=== PATIENT | male | born 1950 | race Two or more races ===

== ENCOUNTER 2023-08-08 21:26 | Emergency (ER) | payer MEDICARE, OTHER ==
[2023-08-08 23:42] LABS: #Eosinphils 0.1 thou/uL (0.0-0.7); #Monocytes 0.5 thou/uL (0.11-0.59); #Neutrophils 3.6 thou/uL (1.40-6.50); %Basophils 0.5 % (0.0-1.0); %Eosinophils 2.5 % (0.0-10.0); %Lymphocytes 23.1 % (21.0-51.0); %Monocytes 9.4 % (0.0-10.0); %Neutrophils 64.1 % (42.0-75.0); Hematocrit 29.4 % (42.0-52.0); Hemoglobin 9.9 g/dL (14.0-18.0); Mean Corpuscular HGB CONC 33.7 g/dL (32.0-36.0); Mean Corpuscular Volume 89.1 fl (78.0-98.0); Mean Platelet Volume 8.7 fL (7.4-10.4); Platelet Count 407 10x3/uL (130-400); RBC Distribution Width 12.7 % (11.5-14.5); White Blood Cell (WBC) Count 5.6 10x3/uL (4.8-10.8)
[2023-08-08 23:56] LABS: INR-International Normal Ratio 4.8; Prothrombin Time 47.1 sec (12.0-14.7)
[2023-08-08 23:58] LABS: PTT 85.3 sec (22.9-36.1)
[2023-08-09 00:31] LABS: Albumin 3.6 g/dL (3.4-4.8); Calcium 8.4 mg/dL (7.8-10.44); Chloride 105 mmol/L (98-107); Globulin 3.2 g/dL (2.4-3.5); Glucose 226 mg/dL (83-110); Potassium 5.2 mmol/L (3.5-5.1); Protein, Total 6.8 g/dL (5.8-8.1); Sodium 136 mmol/L (136-145)
[2023-08-09 00:32] LABS: Anion Gap 15 mmol/L (10-20); Bilirubin, Total 0.2 mg/dL (0.2-1.2); Carbon Dioxide 21 mmol/L (23-31)
[2023-08-09 00:33] LABS: Alkaline Phosphatase 65 U/L (40-110)
[2023-08-09 00:34] LABS: Calc. Creatinine Clearance 0 mL/min (70-130); Estimated GFR 28
[2023-08-09 00:35] LABS: BUN (Urea Nitrogen) 40 mg/dL (8.4-25.7)
[2023-08-09 00:36] LABS: ALT (SGPT) 17 U/L (8-55); AST (SGOT) 14 U/L (5-34)
[2023-08-09 04:37] LABS: Anion Gap 12 mmol/L (10-20); BUN (Urea Nitrogen) 38 mg/dL (8.4-25.7); Calc. Creatinine Clearance 0 mL/min (70-130); Carbon Dioxide 21 mmol/L (23-31); Chloride 109 mmol/L (98-107); Estimated GFR 33; Glucose 223 mg/dL (83-110); Potassium 4.5 mmol/L (3.5-5.1); Sodium 137 mmol/L (136-145)
== END 2023-08-09 05:09 | disposition home or self-care (01) ==
LOC: ERS 21:26
DX: R60.0 Localized edema (principal); E11.22 Type 2 diabetes mellitus with diabetic chronic kidney disease; N18.9 Chronic kidney disease, unspecified
CPT/HCPCS: 36415; 80048; 80053; 83605; 85025; 85610; 85730

== ENCOUNTER 2023-08-24 09:52 | Outpatient (CLI) | payer MEDICARE, OTHER | END 2023-08-24 09:53 | disposition home or self-care (01) | LOC: BICCT 09:52 | PROVIDERS: ATTEND Nurse Practitioner Family | DX: R09.89 Other specified symptoms and signs involving the circulatory and respiratory systems (principal) | CPT/HCPCS: 82565 ==

== ENCOUNTER 2023-08-31 15:06 | Outpatient (CLI) | payer MEDICARE, OTHER | END 2023-08-31 15:07 | disposition home or self-care (01) | LOC: BICULT 15:06 | PROVIDERS: ATTEND Internal Medicine Nephrology | DX: I12.9 Hypertensive chronic kidney disease with stage 1 through stage 4 chronic kidney disease, or unspecified chronic kidney disease (principal); N18.9 Chronic kidney disease, unspecified; R93.421 Abnormal radiologic findings on diagnostic imaging of right kidney; R93.422 Abnormal radiologic findings on diagnostic imaging of left kidney | CPT/HCPCS: 76770; 93975 ==

== ENCOUNTER 2024-03-23 16:32 | Inpatient (IN) | payer MEDICARE, OTHER ==
[2024-03-23 19:38] LABS: #Basophils 0.06 10x3/uL (0.0-0.2); %Basophils 0.4 % (0.0-1.0); %Eosinophils 0.4 % (0.0-10.0); %Lymphocytes 6.9 % (21.0-51.0); %Monocytes 6.1 % (0.0-10.0); %Neutrophils 85.7 % (42.0-75.0); Hematocrit 29.2 % (42.0-52.0); Hemoglobin 9.3 g/dL (14.0-18.0); Mean Corpuscular HGB CONC 31.8 g/dL (32.0-36.0); Mean Corpuscular Hemoglobin 27.7 pg (27.0-31.0); Mean Corpuscular Volume 86.9 fL (78.0-98.0); Mean Platelet Volume 8.6 fL (7.4-10.4); Platelet Count 583 10x3/uL (130-400); RBC Distribution Width 14.6 % (11.5-14.5); Red Blood Cell (RBC) Count 3.36 mill/uL (4.70-6.10)
[2024-03-23 19:56] LABS: ALT (SGPT) 53 U/L (8-55); AST (SGOT) 30 U/L (5-34); Albumin 2.7 g/dL (3.4-4.8); Alkaline Phosphatase 114 U/L (40-110); Anion Gap 15 mmol/L (10-20); BUN (Urea Nitrogen) 45 mg/dL (8.4-25.7); Bilirubin, Total 0.8 mg/dL (0.2-1.2); Calc. Creatinine Clearance 0 mL/min (70-130); Carbon Dioxide 23 mmol/L (23-31); Chloride 96 mmol/L (98-107); Estimated GFR 25; Globulin 5.4 g/dL (2.4-3.5); Glucose 321 mg/dL (83-110); Potassium 5.5 mmol/L (3.5-5.1); Protein, Total 8.1 g/dL (5.8-8.1); Sodium 128 mmol/L (136-145)
[2024-03-23] MEDS ORDERED: Sodium Chloride 0.9% 100 ML ONE (20:53)
[2024-03-23] MEDS ORDERED: Cefepime 2 GM VIAL ONE (20:53)
[2024-03-23] MEDS ORDERED: Furosemide 20 MG (2 mL) VIAL ONE (22:09)
[2024-03-23] MEDS ORDERED: Glucagon 1 MG/ML KIT IM PRN (22:37)
[2024-03-23] MEDS ORDERED: Dextrose 5% in Water 1,000 ML IV PRN (22:37)
[2024-03-23] MEDS ORDERED: Dextrose 50% Abboject 50 ML SYRINGE SLOW IVP PRN (22:37)
[2024-03-23] MEDS ORDERED: Ondansetron ODT 4 MG TAB PO PRN (22:38)
[2024-03-23] MEDS: Vancomycin (BATCH) 1.75 GM in Premix 1 BAG IVPB SCH (23:56)
[2024-03-24 00:02] LABS: INR-International Normal Ratio 2.7; Prothrombin Time 28.9 sec (12.0-14.7)
[2024-03-24 00:04] LABS: PTT 73.9 sec (22.9-36.1)
[2024-03-24 01:17] VITALS: BMI 29.3
[2024-03-24] MEDS: Ondansetron PF 4 MG/2 ML Vial IVP PRN (01:51)
[2024-03-24] MEDS: Acetaminophen 650 MG Suppository PR PRN (02:04)
[2024-03-24 05:26] LABS: #Basophils 0.04 10x3/uL (0.0-0.2); %Basophils 0.3 % (0.0-1.0); %Eosinophils 0.6 % (0.0-10.0); %Lymphocytes 6.9 % (21.0-51.0); %Neutrophils 83.6 % (42.0-75.0); Hematocrit 24.2 % (42.0-52.0); Hemoglobin 7.8 g/dL (14.0-18.0); Mean Corpuscular HGB CONC 32.2 g/dL (32.0-36.0); Mean Corpuscular Hemoglobin 27.7 pg (27.0-31.0); Mean Corpuscular Volume 85.8 fL (78.0-98.0); Mean Platelet Volume 8.7 fL (7.4-10.4); Platelet Count 484 10x3/uL (130-400); RBC Distribution Width 14.4 % (11.5-14.5); Red Blood Cell (RBC) Count 2.82 mill/uL (4.70-6.10)
[2024-03-24 06:08] LABS: Anion Gap 16 mmol/L (10-20); BUN (Urea Nitrogen) 43 mg/dL (8.4-25.7); Calc. Creatinine Clearance 32 mL/min (70-130); Calcium 8.7 mg/dL (7.8-10.44); Carbon Dioxide 21 mmol/L (23-31); Chloride 102 mmol/L (98-107); Estimated GFR 29; Glucose 168 mg/dL (83-110); Potassium 4.5 mmol/L (3.5-5.1); Sodium 134 mmol/L (136-145)
[2024-03-24] MEDS: Famotidine/PF 20 mg/2ml Vial SLOW IVP SCH (08:33)
[2024-03-24] MEDS: Gabapentin 300 MG CAP PO SCH (08:33)
[2024-03-24] MEDS: Baclofen 10 MG TAB PO SCH (08:33)
[2024-03-24] MEDS: Famotidine 20 MG TAB PO SCH (08:33)
[2024-03-24] MEDS: Citalopram 20 MG TAB PO SCH (08:33)
[2024-03-24] MEDS: HumuLIN 70/30 100 Unit/ml 10 ml Vial SC SCH (08:34)
[2024-03-24] MEDS ORDERED: Phytonadione 10 MG/ML AMP PO SCH (12:45)
[2024-03-24 13:19] LABS: Prothrombin Time 31.3 sec (12.0-14.7)
[2024-03-24 13:20] LABS: PTT 77.1 sec (22.9-36.1)
[2024-03-24] MEDS: Phytonadione 5 MG TAB PO SCH (16:32)
[2024-03-24] MEDS: Insulin Lispro 100 UNIT/ML 10 ML VIAL SC PRN ×2 (17:50→20:34)
[2024-03-24] MEDS: Cefepime 1 GM in Sodium Chloride 0.9% 100 ML IVPB SCH (20:27)
[2024-03-24] MEDS: metroNIDAZOLE 250 MG TAB PO SCH (20:30)
[2024-03-24] MEDS: Rosuvastatin 20 MG TAB PO SCH (20:30)
[2024-03-25 04:29] LABS: #Basophils 0.03 10x3/uL (0.0-0.2); %Basophils 0.3 % (0.0-1.0); %Eosinophils 2.6 % (0.0-10.0); %Lymphocytes 10.3 % (21.0-51.0); %Monocytes 8.5 % (0.0-10.0); %Neutrophils 77.7 % (42.0-75.0); Hematocrit 25.1 % (42.0-52.0); Hemoglobin 7.9 g/dL (14.0-18.0); Mean Corpuscular HGB CONC 31.5 g/dL (32.0-36.0); Mean Corpuscular Hemoglobin 27.2 pg (27.0-31.0); Mean Corpuscular Volume 86.6 fL (78.0-98.0); Mean Platelet Volume 8.8 fL (7.4-10.4); Platelet Count 496 10x3/uL (130-400); RBC Distribution Width 14.5 % (11.5-14.5)
[2024-03-25 05:10] LABS: Anion Gap 15 mmol/L (10-20); BUN (Urea Nitrogen) 41 mg/dL (8.4-25.7); Calc. Creatinine Clearance 36 mL/min (70-130); Calcium 8.7 mg/dL (7.8-10.44); Carbon Dioxide 23 mmol/L (23-31); Chloride 105 mmol/L (98-107); Estimated GFR 34; Glucose 119 mg/dL (83-110); Potassium 4.7 mmol/L (3.5-5.1); Sodium 138 mmol/L (136-145)
[2024-03-25 05:16] LABS: Hemoglobin A1c 7.3 % (4.0-6.0)
[2024-03-25] MEDS: LevoFLOXacin 250 MG TAB PO SCH (06:04)
[2024-03-25] MEDS ORDERED: Baclofen 10 MG TAB PO PRN (09:12)
[2024-03-25 11:17] LABS: INR-International Normal Ratio 1.6; Prothrombin Time 18.7 sec (12.0-14.7)
[2024-03-25 11:18] LABS: PTT 54.5 sec (22.9-36.1)
[2024-03-25] MEDS: Phytonadione 10 MG in Sodium Chloride 0.9% 50 ML IVPB SCH (11:23)
[2024-03-25] MEDS: Insulin Glargine 30 UNITS/0.3 ML VIAL SC SCH (21:45)
[2024-03-26 04:58] LABS: #Basophils 0.03 10x3/uL (0.0-0.2); %Basophils 0.4 % (0.0-1.0); %Eosinophils 2.9 % (0.0-10.0); %Lymphocytes 11.4 % (21.0-51.0); %Monocytes 8.9 % (0.0-10.0); Hemoglobin 8.5 g/dL (14.0-18.0); Mean Corpuscular HGB CONC 31.5 g/dL (32.0-36.0); Mean Corpuscular Hemoglobin 26.4 pg (27.0-31.0); Mean Corpuscular Volume 83.9 fL (78.0-98.0); Mean Platelet Volume 8.9 fL (7.4-10.4); Platelet Count 536 10x3/uL (130-400); RBC Distribution Width 14.2 % (11.5-14.5); Red Blood Cell (RBC) Count 3.22 mill/uL (4.70-6.10)
[2024-03-26 05:26] LABS: Anion Gap 19 mmol/L (10-20); BUN (Urea Nitrogen) 35 mg/dL (8.4-25.7); Calc. Creatinine Clearance 48 mL/min (70-130); Calcium 8.7 mg/dL (7.8-10.44); Carbon Dioxide 21 mmol/L (23-31); Chloride 103 mmol/L (98-107); Estimated GFR 48; Glucose 142 mg/dL (83-110); Potassium 4.5 mmol/L (3.5-5.1); Sodium 138 mmol/L (136-145)
[2024-03-26 06:17] LABS: INR-International Normal Ratio 1.3; Prothrombin Time 16.4 sec (12.0-14.7)
[2024-03-26] MEDS ORDERED: Ketamine In 0.9 % NaCl 50 MG/5 ML SYRINGE ONE (09:58)
[2024-03-26] MEDS ORDERED: Midazolam HCl 2 mg/2 ml Vial ONE (09:58)
[2024-03-26] MEDS ORDERED: PROPOFOL 20 ML ONE (09:58)
[2024-03-26] MEDS ORDERED: Lidocaine 1% PF 5 ML VIAL ONE (10:26)
[2024-03-26] MEDS: Cefepime 1 GM in Sodium Chloride 0.9% 100 ML IVPB SCH (13:06)
[2024-03-26] MEDS: Warfarin Sodium 7.5 MG TAB PO SCH (17:42)
[2024-03-26] MEDS: Acetaminophen 325 MG TAB PO PRN (21:04)
[2024-03-27 04:39] LABS: #Basophils 0.03 10x3/uL (0.0-0.2); %Basophils 0.4 % (0.0-1.0); %Eosinophils 1.7 % (0.0-10.0); %Lymphocytes 15.1 % (21.0-51.0); %Monocytes 10.2 % (0.0-10.0); Hematocrit 25.4 % (42.0-52.0); Hemoglobin 7.9 g/dL (14.0-18.0); Mean Corpuscular HGB CONC 31.1 g/dL (32.0-36.0); Mean Corpuscular Hemoglobin 26.8 pg (27.0-31.0); Mean Corpuscular Volume 86.1 fL (78.0-98.0); Mean Platelet Volume 8.6 fL (7.4-10.4); Platelet Count 478 10x3/uL (130-400); Red Blood Cell (RBC) Count 2.95 mill/uL (4.70-6.10)
[2024-03-27 04:52] LABS: INR-International Normal Ratio 1.3; Prothrombin Time 16.6 sec (12.0-14.7)
[2024-03-27 05:06] LABS: Anion Gap 13 mmol/L (10-20); BUN (Urea Nitrogen) 31 mg/dL (8.4-25.7); Calc. Creatinine Clearance 47 mL/min (70-130); Calcium 8.5 mg/dL (7.8-10.44); Carbon Dioxide 24 mmol/L (23-31); Chloride 103 mmol/L (98-107); Estimated GFR 47; Glucose 138 mg/dL (83-110); Potassium 4.6 mmol/L (3.5-5.1); Sodium 135 mmol/L (136-145)
[2024-03-27 08:22] VITALS: BMI 28.8
[2024-03-27] MEDS: Acetaminophen/Codeine 30-300mg Tablet PO PRN (09:32)
[2024-03-28 04:22] LABS: #Basophils 0.04 10x3/uL (0.0-0.2); %Basophils 0.6 % (0.0-1.0); %Eosinophils 2.5 % (0.0-10.0); %Lymphocytes 14.8 % (21.0-51.0); %Monocytes 9.4 % (0.0-10.0); %Neutrophils 72.2 % (42.0-75.0); Hematocrit 25.3 % (42.0-52.0); Mean Corpuscular HGB CONC 31.6 g/dL (32.0-36.0); Mean Corpuscular Hemoglobin 26.4 pg (27.0-31.0); Mean Corpuscular Volume 83.5 fL (78.0-98.0); Mean Platelet Volume 8.5 fL (7.4-10.4); Platelet Count 459 10x3/uL (130-400); Red Blood Cell (RBC) Count 3.03 mill/uL (4.70-6.10)
[2024-03-28 04:40] LABS: INR-International Normal Ratio 1.6; Prothrombin Time 18.9 sec (12.0-14.7)
[2024-03-28 04:46] LABS: Anion Gap 11 mmol/L (10-20); BUN (Urea Nitrogen) 28 mg/dL (8.4-25.7); Calc. Creatinine Clearance 45 mL/min (70-130); Calcium 8.3 mg/dL (7.8-10.44); Carbon Dioxide 24 mmol/L (23-31); Chloride 102 mmol/L (98-107); Estimated GFR 45; Glucose 259 mg/dL (83-110); Potassium 4.4 mmol/L (3.5-5.1); Sodium 133 mmol/L (136-145)
[2024-03-28] MEDS: Gabapentin 300 MG CAP PO SCH (05:17)
[2024-03-28] MEDS: Warfarin Sodium 10 MG TAB PO SCH (15:53)
[2024-03-29 05:50] LABS: #Basophils Less than 0.03 10x3/uL (0.0-0.2); %Basophils 0.3 % (0.0-1.0); %Eosinophils 3.2 % (0.0-10.0); %Lymphocytes 17.9 % (21.0-51.0); %Monocytes 9.2 % (0.0-10.0); %Neutrophils 68.7 % (42.0-75.0); Mean Corpuscular Hemoglobin 27.3 pg (27.0-31.0); Mean Corpuscular Volume 85.3 fL (78.0-98.0); Mean Platelet Volume 8.9 fL (7.4-10.4); Platelet Count 471 10x3/uL (130-400); Red Blood Cell (RBC) Count 2.93 mill/uL (4.70-6.10)
[2024-03-29 06:12] LABS: Anion Gap 14 mmol/L (10-20); BUN (Urea Nitrogen) 23 mg/dL (8.4-25.7); Calc. Creatinine Clearance 52 mL/min (70-130); Calcium 8.4 mg/dL (7.8-10.44); Carbon Dioxide 24 mmol/L (23-31); Chloride 103 mmol/L (98-107); Estimated GFR 54; Glucose 102 mg/dL (83-110); Potassium 4.4 mmol/L (3.5-5.1); Sodium 137 mmol/L (136-145)
[2024-03-29 06:19] LABS: INR-International Normal Ratio 2.1; Prothrombin Time 23.5 sec (12.0-14.7)
[2024-03-29] MEDS: SODIUM CHLORIDE 0.9% IVPB SCH (15:13)
[2024-03-29] MEDS: VANCOMYCIN IVPB SCH (15:13)
[2024-03-29] MEDS: Vancomycin (BATCH) 1.75 GM in Premix 1 BAG IVPB SCH (15:39)
[2024-03-29] MEDS: Warfarin Sodium 7.5 MG TAB PO SCH (17:36)
[2024-03-30 04:39] LABS: #Basophils 0.04 10x3/uL (0.0-0.2); %Basophils 0.6 % (0.0-1.0); %Eosinophils 3.1 % (0.0-10.0); %Neutrophils 68.4 % (42.0-75.0); Hematocrit 26.8 % (42.0-52.0); Hemoglobin 8.5 g/dL (14.0-18.0); Mean Corpuscular HGB CONC 31.7 g/dL (32.0-36.0); Mean Corpuscular Hemoglobin 26.4 pg (27.0-31.0); Mean Corpuscular Volume 83.2 fL (78.0-98.0); Mean Platelet Volume 8.7 fL (7.4-10.4); Platelet Count 430 10x3/uL (130-400); Red Blood Cell (RBC) Count 3.22 mill/uL (4.70-6.10)
[2024-03-30 04:54] LABS: INR-International Normal Ratio 2.4; Prothrombin Time 26.5 sec (12.0-14.7)
[2024-03-30 05:00] LABS: Vancomycin, Random 20.9 ug/mL (See Comment)
[2024-03-30 05:41] LABS: Chloride 106 mmol/L (98-107); Potassium 4.7 mmol/L (3.5-5.1); Sodium 136 mmol/L (136-145)
[2024-03-30 05:42] LABS: Glucose 100 mg/dL (83-110)
[2024-03-30 05:44] LABS: Anion Gap 13 mmol/L (10-20); Carbon Dioxide 22 mmol/L (23-31)
[2024-03-30 05:46] LABS: Calc. Creatinine Clearance 53 mL/min (70-130); Estimated GFR 55
[2024-03-30 05:47] LABS: BUN (Urea Nitrogen) 22 mg/dL (8.4-25.7)
[2024-03-30] MEDS: Vancomycin (BATCH) 1.25 GM in Premix 1 BAG IVPB SCH (12:31)
[2024-03-30] MEDS ORDERED: Vancomycin (BATCH) 1.25 GM in Premix 1 BAG IVPB SCH (14:00)
[2024-03-31 05:07] LABS: INR-International Normal Ratio 2.6; Prothrombin Time 28.1 sec (12.0-14.7)
[2024-03-31 05:18] LABS: Vancomycin, Random 20.1 ug/mL (See Comment)
[2024-03-31] MEDS: Vancomycin HCl 750 MG in Sodium Chloride 0.9% 250 ML 250 ML IVPB SCH (12:49)
[2024-03-31] MEDS ORDERED: Polyethylene Glycol 3350 17 GM Packet PO PRN (13:34)
[2024-03-31] MEDS: Senokot S 8.6-50 MG TAB PO SCH (21:26)
[2024-04-01 05:18] LABS: #Basophils 0.04 10x3/uL (0.0-0.2); %Basophils 0.6 % (0.0-1.0); %Eosinophils 3.4 % (0.0-10.0); %Lymphocytes 22.8 % (21.0-51.0); %Neutrophils 62.6 % (42.0-75.0); Hematocrit 26.5 % (42.0-52.0); Hemoglobin 8.3 g/dL (14.0-18.0); Mean Corpuscular HGB CONC 31.3 g/dL (32.0-36.0); Mean Corpuscular Hemoglobin 25.9 pg (27.0-31.0); Mean Corpuscular Volume 82.6 fL (78.0-98.0); Mean Platelet Volume 8.9 fL (7.4-10.4); Platelet Count 415 10x3/uL (130-400); Red Blood Cell (RBC) Count 3.21 mill/uL (4.70-6.10)
[2024-04-01 05:32] LABS: Anion Gap 13 mmol/L (10-20); BUN (Urea Nitrogen) 18 mg/dL (8.4-25.7); Calc. Creatinine Clearance 66 mL/min (70-130); Calcium 8.3 mg/dL (7.8-10.44); Carbon Dioxide 23 mmol/L (23-31); Chloride 103 mmol/L (98-107); Estimated GFR 71; Glucose 98 mg/dL (83-110); Magnesium 1.7 mg/dL (1.6-2.6); Sodium 135 mmol/L (136-145)
[2024-04-01 05:59] LABS: Prothrombin Time 31.1 sec (12.0-14.7)
[2024-04-01] MEDS: Magnesium Oxide 400 MG TAB PO SCH (20:53)
[2024-04-01] MEDS: Senokot S 8.6-50 MG TAB PO SCH (20:53)
[2024-04-02 05:18] LABS: #Basophils 0.04 10x3/uL (0.0-0.2); %Basophils 0.7 % (0.0-1.0); %Lymphocytes 23.7 % (21.0-51.0); %Monocytes 9.8 % (0.0-10.0); %Neutrophils 61.9 % (42.0-75.0); Hematocrit 27.3 % (42.0-52.0); Hemoglobin 8.5 g/dL (14.0-18.0); Mean Corpuscular HGB CONC 31.1 g/dL (32.0-36.0); Mean Corpuscular Hemoglobin 26.5 pg (27.0-31.0); Mean Platelet Volume 8.6 fL (7.4-10.4); Platelet Count 405 10x3/uL (130-400); RBC Distribution Width 14.2 % (11.5-14.5); Red Blood Cell (RBC) Count 3.21 mill/uL (4.70-6.10)
[2024-04-02 05:44] LABS: Vancomycin, Random 14.6 ug/mL (See Comment)
[2024-04-02 05:47] LABS: Anion Gap 13 mmol/L (10-20); BUN (Urea Nitrogen) 17 mg/dL (8.4-25.7); Calc. Creatinine Clearance 62 mL/min (70-130); Calcium 8.4 mg/dL (7.8-10.44); Carbon Dioxide 23 mmol/L (23-31); Chloride 105 mmol/L (98-107); Estimated GFR 67; Glucose 114 mg/dL (83-110); Potassium 4.5 mmol/L (3.5-5.1); Sodium 136 mmol/L (136-145)
[2024-04-02 05:52] LABS: INR-International Normal Ratio 2.8; Prothrombin Time 29.2 sec (12.0-14.7)
[2024-04-02] MEDS ORDERED: Lidocaine 1% PF 5 ML VIAL ONE (07:33)
[2024-04-02] MEDS ORDERED: Sodium Bicarbonate 2.5 MEQ/5 ML SDV ONE (07:33)
[2024-04-02] MEDS: Vancomycin HCl 500 MG in Sodium Chloride 0.9% 100 ML IVPB SCH (12:48)
[2024-04-02] MEDS: Warfarin Sodium 5 MG TAB PO SCH (15:15)
[2024-04-03 04:31] LABS: Vancomycin, Random 13.5 ug/mL (See Comment)
[2024-04-03 04:37] LABS: INR-International Normal Ratio 2.6; Prothrombin Time 28.4 sec (12.0-14.7)
[2024-04-03] MEDS: Lisinopril 2.5 MG TAB PO SCH (08:51)
[2024-04-03] MEDS: Vancomycin 1 GM in Premix 1 BAG IVPB SCH (14:09)
[2024-04-04 04:42] LABS: #Basophils Less than 0.03 10x3/uL (0.0-0.2); %Basophils 0.3 % (0.0-1.0); %Eosinophils 2.8 % (0.0-10.0); %Monocytes 8.7 % (0.0-10.0); %Neutrophils 63.6 % (42.0-75.0); Hematocrit 26.2 % (42.0-52.0); Hemoglobin 8.3 g/dL (14.0-18.0); Mean Corpuscular HGB CONC 31.7 g/dL (32.0-36.0); Mean Corpuscular Hemoglobin 26.6 pg (27.0-31.0); Mean Platelet Volume 8.7 fL (7.4-10.4); Platelet Count 398 10x3/uL (130-400); RBC Distribution Width 14.4 % (11.5-14.5); Red Blood Cell (RBC) Count 3.12 mill/uL (4.70-6.10)
[2024-04-04 04:52] LABS: INR-International Normal Ratio 2.4; Prothrombin Time 26.5 sec (12.0-14.7)
[2024-04-04 04:56] LABS: Anion Gap 12 mmol/L (10-20); BUN (Urea Nitrogen) 16 mg/dL (8.4-25.7); Calc. Creatinine Clearance 72 mL/min (70-130); Calcium 8.1 mg/dL (7.8-10.44); Carbon Dioxide 26 mmol/L (23-31); Chloride 104 mmol/L (98-107); Estimated GFR 80; Glucose 111 mg/dL (83-110); Potassium 4.5 mmol/L (3.5-5.1); Sodium 137 mmol/L (136-145)
[2024-04-04 12:18] VITALS: BP 172/72; TEMP 97.3
[2024-04-04] MEDS: Vancomycin (BATCH) 1.25 GM in Premix 1 BAG IVPB SCH (12:22)
[2024-04-05] MEDS ORDERED: Vancomycin (BATCH) 1.25 GM in Premix 1 BAG IVPB SCH (11:00)
== END 2024-04-04 14:15 | DRG 240 ==
LOC: ERS 16:32 → 2SW 21:17 → 2NO 03-24 00:57 → OBSVTOIN 03-24 10:03
PROVIDERS: ADMIT Student in an Organized Health Care Education/Training Program; ATTEND Internal Medicine
PROC: 0Y6M0ZC Detachment at Right Foot, Partial 3rd Ray, Open Approach (ICD-10-PCS; principal; 2024-03-26)
PROC: 0Y6M0ZD Detachment at Right Foot, Partial 4th Ray, Open Approach (ICD-10-PCS; 2024-03-26)
PROC: 0Y6M0ZF Detachment at Right Foot, Partial 5th Ray, Open Approach (ICD-10-PCS; 2024-03-26)
DX: E11.52 Type 2 diabetes mellitus with diabetic peripheral angiopathy with gangrene (principal); E44.0 Moderate protein-calorie malnutrition; E87.1 Hypo-osmolality and hyponatremia; I96 Gangrene, not elsewhere classified; N17.9 Acute kidney failure, unspecified; E11.22 Type 2 diabetes mellitus with diabetic chronic kidney disease; Z79.899 Other long term (current) drug therapy; Z79.4 Long term (current) use of insulin; Z79.01 Long term (current) use of anticoagulants; E78.5 Hyperlipidemia, unspecified; F32.A Depression, unspecified; Z98.890 Other specified postprocedural states; E87.5 Hyperkalemia; N18.30 Chronic kidney disease, stage 3 unspecified; E11.65 Type 2 diabetes mellitus with hyperglycemia; E11.51 Type 2 diabetes mellitus with diabetic peripheral angiopathy without gangrene; Z86.718 Personal history of other venous thrombosis and embolism; D63.1 Anemia in chronic kidney disease
CPT/HCPCS: 36415; 36416; 36569; 76937; 77001; 80048; 80053; 80202; 83036; 83605; 83735; 85025; 85610; 85730; 86850; 86900; 86901; 87040; 87070; 87077; 87186; 87205; 88305; 88311; 93005; 96365; 96367; 96375; 97139; G0378; J0692; J0695; J1815; J1940; J2250; J2405; J2704; J3370; J3370-JW; J3490; J7050

== ENCOUNTER 2024-04-17 05:50 | Day surgery (SDC) | payer MEDICARE, OTHER ==
[2024-04-16 13:59] VITALS: BMI 28.5
[2024-04-17] MEDS ORDERED: Diazepam 5 MG TAB ONE (07:05)
[2024-04-17] MEDS ORDERED: fentaNYL 50 mcg/mL 1 mL Vial ONE (07:16)
[2024-04-17] MEDS ORDERED: Heparin 10,000 UNITS/ 10 ML VIAL ONE (07:16)
[2024-04-17] MEDS ORDERED: Midazolam HCl 2 mg/2 ml Vial ONE (07:16)
[2024-04-17] MEDS ORDERED: Protamine Sulfate 50 MG/5 ML VIAL ONE (08:36)
[2024-04-17] MEDS ORDERED: Iopamidol 370 76% 100 ML VIAL ONE (10:45)
== END 2024-04-17 16:30 | disposition home or self-care (01) ==
LOC: SDC 05:50
PROVIDERS: ATTEND Internal Medicine Cardiovascular Disease
PROC: 04FY3Z0 Fragmentation of Lower Artery, Percutaneous Approach, Ultrasonic (ICD-10-PCS; principal; 2024-04-17)
DX: L97.511 Non-pressure chronic ulcer of other part of right foot limited to breakdown of skin (principal); E11.9 Type 2 diabetes mellitus without complications; E78.5 Hyperlipidemia, unspecified; Z79.01 Long term (current) use of anticoagulants; Z79.899 Other long term (current) drug therapy; Z87.891 Personal history of nicotine dependence
CPT/HCPCS: 36247; 75710; 85347 ×2; C1769 ×6; C1887 ×2; C1894 ×2; J1644; J2250; J2720; J3010; 75625; 75774; Q9967

== ENCOUNTER 2024-04-20 18:35 | Emergency (ER) | payer MEDICARE, OTHER | END 2024-04-20 21:06 | disposition home or self-care (01) | LOC: ERS 18:35 | DX: Z48.00 Encounter for change or removal of nonsurgical wound dressing (principal); E11.22 Type 2 diabetes mellitus with diabetic chronic kidney disease; N18.9 Chronic kidney disease, unspecified; Z79.01 Long term (current) use of anticoagulants; Z79.4 Long term (current) use of insulin | CPT/HCPCS: 99282 ==